=== PATIENT | female | born 1955 | race Caucasian/White ===

== ENCOUNTER 2023-06-04 13:15 | Emergency (ER) | payer MEDICARE, SELFPAY ==
[2023-06-04 13:18] VITALS: BP 156/99
[2023-06-04 13:33] VITALS: BMI 39.3
--- NOTE | 2023-06-04 13:34 | ED.GENMED ---
History of Present Illness
General
Chief Complaint: Abdominal Symptoms
Source: patient
Exam Limitations: none
Time Seen by Provider: 06/04/23 13:28
Travel History
Have you had any contact with someone who has COVID-19?: No
Do you have any symptoms of coronavirus? Fever > 100 degrees, chills, cough, shortness of breath, sore throat, loss of taste or smell, muscle aches, or headache?: No
History of Present Illness
History of Present Illness:
Patient is a 68-year-old female who presents to the ER for evaluation of abdominal pain that started yesterday. Patient complains of lower abdominal pain. She does also reports she was constipated and only has moved her bowels very minimally
yesterday. She is nauseous did vomit last night. She is concerned about diverticulitis. She reports she has never had a flare but has diverticulosis diagnosed on colonoscopy in the past. She denies any urinary frequency urgency or dysuria. She
denies any fever/chills.
She does report that she has had several surgeries including tubal ligation/surgery for uterine prolapse hysterectomy 2 years ago.
Past History
Past History
ED Past Medical History: Other (Hypertension, diverticulosis, carpal tunnel repair, Sjogren syndrome, hernia repair, tubal ligation)
Social History
Tobacco: Non-smoker
Alcohol: None
Family History
Family History: Other (Sjogren syndrome, prostate cancer)
Review of Systems
Review of Systems
Allergies reviewed?: Yes
All Other Systems: ROS reviewed and negative except as documented in HPI and ROS
Constitutional: Reports no symptoms
Respiratory: Reports no symptoms
Cardiac: Reports no symptoms
ABD/GI: Reports abdominal pain, nausea, vomiting and constipated; Denies diarrhea
: Reports no symptoms; Denies dysuria, flank pain or urgency
Musculoskeletal: Reports no symptoms
Skin: Reports no symptoms
Neurological: Reports no symptoms
Endocrine: Reports no symptoms
Hematologic/Lymphatic: Reports no symptoms
Psychiatric: Reports no symptoms
Phy Exam
General Physical Exam
General Presentation: no apparent distress
General age: appears stated age
General Skin: warm and dry
General Habitus: normal
General Mental: alert
General Hydration: appears well hydrated
Gastrointestinal Exam
Gastrointestinal Exam: soft and other (Tender throughout lower abdominal suprapubic region)
Neurological Exam
Neurological Exam: alert and oriented x3
[place] Coma Scale
Eye Opening: Spontaneous
Verbal Response: Oriented
Motor Response: Obeys Commands
GCS Total Score: 15
Musculoskeletal Exam
Musculoskeletal Exam: full ROM
Skin Exam
Skin Exam: normal color and warm/dry
Psychiatric Exam
Psychiatric Exam: normal mood/affect
Course
Orders/Labs/Results
Orders:
Orders
06/04/23 13:55
Complete Blood Count/With Diff Urgent
Comprehensive Metabolic Panel Urgent
Lipase Urgent
06/04/23 14:07
CT Abd/Pel (IV only)-DH only Urgent
Comment:
Reason For Exam: lower abdominal pain
IV Insert/Care/Rem.- Treatment PRN
0.9% Sodium Chloride 1000 ml [Nss] 1,000 ml IV BOLUS
06/04/23 15:11
Urinalysis Reflex To Culture Urgent
Date Specimen was Collected: 06/04/23
Time Specimen was Collected: 15:02
Abnormal Lab Results
06/04/23
13:55
WBC 18.0 H 10^3/uL
(4.8-10.8)
Abs Immat Gran (auto) 0.1 H 10^3/uL
(0-0.05)
Absolute Neuts (auto) 14.4 H 10^3/uL
(1.4-6.5)
Absolute Monos (auto) 1.2 H 10^3/uL
(0.1-0.6)
Neutrophils % 80.3 H %
(42.2-75.2)
Lymphocytes % 12.3 L %
(20.5-51.1)
Sodium 130 L mmol/L
(135-145)
Glucose 113 H mg/dl
(70-99)
Calcium 10.5 H mg/dl
(8.4-10.2)
06/04/23 13:55
06/04/23 13:55
Vital Signs
Initial and Last Documented VS:
Initial Vital Signs
Temp Pulse Resp BP Pulse Ox
98.0 F 103 16 156/99 95
06/04/23 13:18 06/04/23 13:18 06/04/23 13:18 06/04/23 13:18 06/04/23 13:18
Last Documented Vital Signs
Temp Pulse Resp BP Pulse Ox
98.0 F 103 16 131/86 94
06/04/23 13:18 06/04/23 13:18 06/04/23 13:18 06/04/23 14:00 06/04/23 14:15
MDM/Problems Addressed
Differential Diagnosis Includes:
Not limited to colitis diverticulitis bowel less likely UTI less likely appendicitis
MDM/Problems Addressed:
Patient is a 68-year-old female who presents with lower abdominal pain for the past several days. She denies any fevers. She did vomit once yesterday. She has been drinking fluids and eating today. She presents with mild tenderness to her lower
abdominal region. She is afebrile here white count elevated 18,000. CAT scan does show findings consistent with sigmoid diverticulitis. Negative urinalysis. Patient is nontoxic would like to go home. Patient looks very well this is reasonable.
She is allergic to amoxicillin we will DC on Cipro Flagyl. I did however review with patient the importance to return if any worsening of symptoms. She is to follow-up with both her family doctor and GI. She has seen our group in the past. I
also reviewed with patient that her sodium will need to be rechecked as it is low here in the ER.
Chronic conditions affecting care:
History of diverticulosis on colonoscopy
*Radiology
Radiology exam reviewed: radiology read reviewed (CAT scan shows extensive pericolonic inflammatory stranding and pericolonic edema with suspected bowel thickening in the mid and distal colon suggesting diverticulitis)
*Pulse Oximetry
Patient hypoxic: no
*Critical Care Note
Total Time (30-74mins, 75-104mins- exclusive of procedures): Not Applicable
ED Attending Note
-
Portions of this chart may have been created with voice recognition software.� Occasional wrong word or��sound alike� substitutions may have occurred due to the inherent limitations of voice recognition software.
Discharge Plan
Departure
Patient Disposition: Home (Routine Discharge)
Date of Disposition: 06/04/23
Time of Disposition: 16:45
Patient with high blood pressure during this ER visit?: Yes
Condition: Fair
Covid-19: Not Applicable
Discharge Problem:
Diverticulitis
Instructions: Diverticulitis (DC), [place] Diet, BLOOD PRESSURE
Prescriptions:
New
ciprofloxacin HCl [Cipro] 500 mg tablet
500 mg PO BID Qty: 20 0RF
metronidazole 500 mg tablet
500 mg PO TID Qty: 30 0RF
No Action
cetirizine 10 MG tablet
10 mg PO DAILY
metoprolol succinate 50 MG tablet extended release 24 hr
50 mg PO DAILY
cyanocobalamin (vitamin B-12) 1,000 MCG tablet
1,000 mcg PO HS
calcium carbonate 500 MG tablet
500 mg PO HS
ascorbic acid (vitamin C) [Vitamin C] 500 MG tablet
500 mg PO HS
camphor-menthol [Sarna Original] 222 ML lotion
1 applic topical PRN PRN (Reason: ITCHING)
pseudoephedrine HCl [Sudogest] 30 MG tablet
30 mg PO PRN PRN (Reason: CONGESTION)
albuterol sulfate 1 PUFF HFA aerosol inhaler
1 puff inhalation R Q4HPRN PRN (Reason: ALLERGIES)
mometasone 1 APPLIC cream
1 applic topical DAILY PRN (Reason: ITCHING)
multivitamin with folic acid [Tab-A-Anum] 1 TABLET tablet
1 tab PO HS
fluticasone furoate-vilanterol [Breo Ellipta] 1 EACH blister with device
1 puff inhalation DAILY
acetaminophen 325 MG tablet
650 mg PO Q4HPRN PRN (Reason: mild pain) 0RF
ibuprofen 600 MG tablet
600 mg PO Q6 Qty: 30 0RF
sennosides-docusate sodium [Colace 2-In-1] 1 EACH tablet
1 ea PO DAILY Qty: 30 0RF
hydromorphone [Dilaudid] 2 MG tablet
2 mg PO Q6 Qty: 10 0RF
Referrals:
Harlan Bhatti MD [Active] -
Anselmo Collins MD [Family Provider] -
Activity Restrictions/Additional Instructions:
As discussed you were prescribed Cipro and Flagyl (antibiotics) to take for the next 10 days. These medications were sent to your pharmacy. You were given the first dose here in the ER. [place] diet discussed. Follow-up with your family doctor in
the next several days for reevaluation of your symptoms as well as GI. Also your sodium was mildly low at 130. Please have this level rechecked within the next week by your PCP.
Return however to the ER if any worsening of symptoms of increased abdominal pain nausea vomiting fever chills or any further concerns
Interventions
Interventions:
*Risk Screen - Suicide Last Done: 06/04/23 14:16
*General Assessment Last Done: 06/04/23 14:08
*Neglect/Abuse Screening Last Done: 06/04/23 14:16
ED- Fall Risk Assessment Last Done: 06/04/23 14:14
*ED COVID-19 Vaccine History Last Done: 06/04/23 13:18
AU-Uvcqbx-Obiufetllh Assessment Last Done: 06/04/23 14:15
Discharge Date and Time
Print Language: CZECH
[2023-06-04 14:00] VITALS: BP 131/86
[2023-06-04] MEDS: NSS 1000 IV (14:11)
[2023-06-04 14:19] LABS: % Basophils 0.2 % (0-2); % Eosinophils 0.1 % (0-6); % Immature Granulocytes 0.4 % (0-0.5); % Lymphocytes 12.3 % (20.5-51.1); % Monocytes 6.7 % (1.7-9.3); % Neutrophils 80.3 % (42.2-75.2); Absolute Immature Granulocytes 0.1 10^3/uL (0-0.05); Absolute Lymphocytes 2.2 10^3/uL (1.2-3.4); Absolute Monocytes 1.2 10^3/uL (0.1-0.6); Absolute Neutrophils 14.4 10^3/uL (1.4-6.5); Hematocrit 38.5 % (37.0-47.0); Hemoglobin 13.5 g/dL (12.0-16.0); Mean Corp Hgb Conc. 35.1 g/dL (33.0-37.0); Mean Corpuscular Hgb 30.9 pg (27.0-31.0); Mean Corpuscular Volume 88.1 fL (81.0-99.0); Mean Platelet Volume 10.4 fL (7.4-10.4); Nucleated Red Blood Cells % 0 %; Platelet Count 299 10^3/uL (130-400); Red Blood Cell Count 4.37 10^6/uL (4.20-5.40); Red Cell Dist. Width 12.1 % (11.5-14.5)
[2023-06-04 14:35] LABS: ALT (SGPT) 20 U/L (0-35); AST (SGOT) 21 U/L (14-36); Albumin 4.7 g/dl (3.5-5.0); Alkaline Phosphatase 101 U/L (38-126); Blood Urea Nitrogen 8 mg/dl (7-17); Calcium 10.5 mg/dl (8.4-10.2); Carbon Dioxide 26 mmol/L (22-30); Chloride 99 mmol/L (98-107); Estimated Creatinine Clearance 100 ml/min; Glucose 113 mg/dl (70-99); Lipase 92 U/L (23-300); Potassium 3.8 mmol/L (3.5-5.1); Sodium 130 mmol/L (135-145); Total Protein 7.7 g/dl (6.3-8.2); eGFR > 60.00
[2023-06-04 15:22] LABS: Urine Albumin Negative (Neg - Trace); Urine Bilirubin Negative (Negative); Urine Character Clear (Clear); Urine Color Yellow; Urine Glucose Negative (Negative); Urine Ketone Negative (Negative); Urine Leukocyte Negative (Negative); Urine Nitrite Negative (Negative); Urine Occult Blood Negative (Negative); Urine Urobilinogen Negative (Neg - 1+)
[2023-06-04 17:01] VITALS: BP 144/74
[2023-06-04] MEDS: CIPRO 500 MG PO (17:37)
[2023-06-04] MEDS: FLAGYL 500 MG PO (17:37)
[2023-06-04 18:13] VITALS: BP 140/90
== END 2023-06-04 18:14 | disposition home or self-care (01) ==
LOC: EMR 13:15
PROVIDERS: Nurse Practitioner; EMERGENCY PHYSICIAN Emergency Medicine; FAMILY PHYSICIAN Family Medicine
DX: K57.32 Diverticulitis of large intestine without perforation or abscess without bleeding (principal); I10 Essential (primary) hypertension
CPT/HCPCS: 99285; 96360; 74177; 80053; 81003; 83690; 85025; Q9967

== ENCOUNTER → 2023-12-03 06:16 | Day surgery (SDC) | payer MEDICARE, SELFPAY | LOC: GI 06:16 | PROVIDERS: ATTENDING PHYSICIAN Internal Medicine Gastroenterology | DX: K57.30 Diverticulosis of large intestine without perforation or abscess without bleeding (principal); D12.2 Benign neoplasm of ascending colon; D12.3 Benign neoplasm of transverse colon; K62.1 Rectal polyp; K57.32 Diverticulitis of large intestine without perforation or abscess without bleeding | CPT/HCPCS: 45380; 88305 ==

== ENCOUNTER → 2024-01-22 14:46 | Outpatient (REF) | payer MEDICARE, SELFPAY | LOC: WDC 14:46 | PROVIDERS: ATTENDING PHYSICIAN Family Medicine; FAMILY PHYSICIAN Physician Assistant Medical | DX: Z12.31 Encounter for screening mammogram for malignant neoplasm of breast (principal) | CPT/HCPCS: 77063; 77067 ==